=== PATIENT | female | born 1970 | race Two or more races ===

== ENCOUNTER 2020-10-22 07:06 | Day surgery (SDC) | payer OTHER | END 2020-10-22 14:00 | disposition home or self-care (01) | LOC: AMB-ENDOS 07:06 | PROVIDERS: ATTEND Colon & Rectal Surgery | DX: C20 Malignant neoplasm of rectum (principal); K64.0 First degree hemorrhoids; Z20.828 Contact with and (suspected) exposure to other viral communicable diseases ==

== ENCOUNTER 2020-11-30 09:00 | Inpatient (IN) | payer OTHER ==
[~2020-11-30] VITALS: Ht 162.6 cm; Wt 64.0 kg
[2020-11-30] MEDS ORDERED: CARAFATE1 GM PO (10:06)
[2020-11-30] MEDS ORDERED: LIPITOR40 MG PO (10:06)
[2020-11-30] MEDS ORDERED: PROTONIX40 MG PO (10:07)
== END 2020-12-10 16:35 | disposition home or self-care (01) | DRG 330 ==
LOC: O/R 12-07 06:46 → SURH 12-07 06:46 → O/R 12-08 15:24 → SURH 12-08 15:25
PROVIDERS: ADMIT Colon & Rectal Surgery; ATTEND Colon & Rectal Surgery
PROC: 0DBP4ZZ Excision of Rectum, Percutaneous Endoscopic Approach (ICD-10-PCS; 2020-12-07)
PROC: 07BC4ZZ Excision of Pelvis Lymphatic, Percutaneous Endoscopic Approach (ICD-10-PCS; 2020-12-07)
PROC: 0D1B4Z4 Bypass Ileum to Cutaneous, Percutaneous Endoscopic Approach (ICD-10-PCS; principal; 2020-12-07 17:45)
DX: C20 Malignant neoplasm of rectum (principal); K92.1 Melena; Z85.048 Personal history of other malignant neoplasm of rectum, rectosigmoid junction, and anus; E78.00 Pure hypercholesterolemia, unspecified; Z92.3 Personal history of irradiation

== ENCOUNTER 2021-03-30 10:15 | Inpatient (IN) | payer OTHER ==
[~2021-03-30] VITALS: Ht 162.6 cm; Wt 59.4 kg
[~2021-03-30 10:15] MED LIST: CARAFATE1 GM PO; LIPITOR40 MG PO; PROTONIX40 MG PO
== END 2021-04-08 16:58 | disposition home or self-care (01) | DRG 331 ==
LOC: SURH 04-06 08:45 → O/R 04-06 08:51 → SURH 04-06 10:15
PROVIDERS: ADMIT Colon & Rectal Surgery; ATTEND Colon & Rectal Surgery
PROC: 0DSB4ZZ Reposition Ileum, Percutaneous Endoscopic Approach (ICD-10-PCS; principal; 2021-04-06 08:45)
DX: Z43.2 Encounter for attention to ileostomy (principal)